=== PATIENT | male | born 1955 | race Caucasian/White ===

== ENCOUNTER 2024-09-07 22:17 | Emergency (ER) | payer OTHER, SELFPAY ==
[2024-09-07 22:19] VITALS: BP 102/67
[2024-09-07 22:40] LABS: % Basophils 0.8 % (0-2); % Eosinophils 4.1 % (0-6); % Immature Granulocytes 0.5 % (0-0.5); % Lymphocytes 25.7 % (20.5-51.1); % Monocytes 11.8 % (1.7-9.3); % Neutrophils 57.1 % (42.2-75.2); Absolute Basophils 0.1 10^3/uL (0-0.2); Absolute Eosinophils 0.3 10^3/uL (0-0.7); Absolute Lymphocytes 1.6 10^3/uL (1.2-3.4); Absolute Monocytes 0.8 10^3/uL (0.1-0.6); Absolute Neutrophils 3.6 10^3/uL (1.4-6.5); Hematocrit 39.1 % (39.0-52.0); Hemoglobin 13.2 g/dL (13.0-18.0); Mean Corp Hgb Conc. 33.8 g/dL (33.0-37.0); Mean Corpuscular Hgb 32.1 pg (27.0-31.0); Mean Corpuscular Volume 95.1 fL (80.0-94.0); Mean Platelet Volume 9.4 fL (7.4-10.4); Nucleated Red Blood Cells % 0 % (-); Platelet Count 181 10^3/uL (130-400); Red Blood Cell Count 4.11 10^6/uL (4.70-6.10); Red Cell Dist. Width 12.8 % (11.5-14.5); White Blood Cell Count 6.4 10^3/uL (4.8-10.8)
[2024-09-07 22:53] LABS: ALT (SGPT) 71 U/L (0-50); AST (SGOT) 49 U/L (17-59); Albumin 4.3 g/dl (3.5-5.0); Alkaline Phosphatase 52 U/L (38-126); Blood Urea Nitrogen 31 mg/dl (9-20); Calcium 9.1 mg/dl (8.4-10.2); Carbon Dioxide 22 mmol/L (22-30); Chloride 105 mmol/L (98-107); Glucose 125 mg/dl (70-99); Potassium 3.8 mmol/L (3.5-5.1); Sodium 141 mmol/L (135-145); Total Bilirubin 0.5 mg/dl (0.2-1.3); eGFR 54.07
[2024-09-08] VITALS (15 sets, daily range): BP systolic 81–158; BP diastolic 46–87; PULSE 81–94; BMI 32.5
[2024-09-08 01:40] LABS: Troponin I < 0.012 ng/ml
--- NOTE | 2024-09-08 02:19 | ED.GENMED ---
History of Present Illness
<BANG Jiménez - Last Filed: 09/08/24 04:24>
General
Chief Complaint: Fainting/Passed Out
Source: patient
Time Seen by Provider: 09/08/24 02:16
Nursing documentation reviewed up to this point in time: agreed with
History of Present Illness
History of Present Illness:
Pt is a 69 yo M who presents to the ED after fainting and falling which resulted in a laceration on his right chin. Pt was drinking alcohol tonight, he states that he was sitting down and then when he stood up to walk he fainted, lost consciousness,
and fell. Pt states that he does not know what he hit his chin on. Pt reports that previously he has had episodes of fainting after he goes from a sitting to standing position. He reports that his and son helped him to stand up, and that he was
able to walk to the car to come to the ED. Pt denies N/V, weakness, changes in vision or hearing, chest pain, shortness of breath, headache.
Past History
<BANG Jiménez - Last Filed: 09/08/24 04:24>
Past History
ED Past Medical History: Psychiatric (Anxiety) and Other (Kidney stone)
ED Past Surgical History: Orthopedic (Left knee replacement) and Other (Hernia repair)
Social History
Tobacco: Non-smoker
Alcohol: Occasional
Personal:
Living: with family
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
Family History
Family History: Other (Noncontributory)
Review of Systems
<BANG Jiménez - Last Filed: 09/08/24 04:24>
Review of Systems
Allergies reviewed?: Yes
Constitutional: Reports no symptoms
Respiratory: Reports no symptoms
Cardiac: Reports no symptoms
ABD/GI: Reports no symptoms
: Reports no symptoms
Musculoskeletal: Reports no symptoms
Skin: Reports other (laceration on chin)
Neurological: Reports other (syncope)
Phy Exam
<Ursula Rooney [facility] - Last Filed: 09/08/24 04:24>
General Physical Exam
General Presentation: well appearing and no apparent distress
General age: appears stated age
General Skin: warm
General Habitus: normal
General Mental: alert
General Hydration: appears well hydrated
Eye Exam
Eye Exam: PERRL and conjunctiva normal
Cardiovascular Exam
Cardiovascular Exam: regular rate/rhythm
Pulmonary Exam
Pulmonary Exam: lungs clear
Neurological Exam
Neurological Exam: alert, oriented x3 and speech normal
Skin Exam
Skin Exam: other (1.5cm laceration on right chin)
Course
<Ursula Rooney [facility] - Last Filed: 09/08/24 04:24>
Orders/Labs/Results
Orders:
Orders
09/07/24 22:24
EKG [Electrocardiogram (*1)] Urgent
Reason for Study: Syncope
EKG- Treatment ONCE
09/07/24 22:29
Alcohol Urgent
Complete Blood Count/With Diff Urgent
Comprehensive Metabolic Panel Urgent
09/08/24 01:07
CT Head W/o Iv Contrast Urgent
Comment:
Reason For Exam: fell, no LOC but is dizzy and bp 82/46
09/08/24 01:09
Troponin I Urgent
09/08/24 02:15
Add On- LAB Urgent
Tests Added?: alcohol level
09/08/24 02:23
0.9% Sodium Chloride 1000 ml [Nss] 1,000 ml IV BOLUS
09/08/24 03:15
0.9% Sodium Chloride 1000 ml [Nss] 1,000 ml IV BOLUS
Tetanus/Diphth/Acelpertussis [Adacel] 0.5 ml IM .ONCE ONE
09/08/24 05:28
Orthostatic VS- Treatment ONCE
Abnormal Lab Results
09/07/24
22:29
RBC 4.11 L 10^6/uL
(4.70-6.10)
MCV 95.1 H fL
(80.0-94.0)
MCH 32.1 H pg
(27.0-31.0)
Absolute Monos (auto) 0.8 H 10^3/uL
(0.1-0.6)
Monocytes % 11.8 H %
(1.7-9.3)
BUN 31 H mg/dl
(9-20)
Creatinine 1.4 H mg/dL
(0.7-1.3)
Glucose 125 H mg/dl
(70-99)
ALT 71 H U/L
(0-50)
09/07/24 22:29
09/07/24 22:29
Vital Signs
Initial and Last Documented VS:
Initial Vital Signs
Temp Pulse Resp BP Pulse Ox
97.5 F 71 16 102/67 96
09/07/24 22:19 09/07/24 22:19 09/07/24 22:19 09/07/24 22:19 09/07/24 22:19
Last Documented Vital Signs
Temp Pulse Resp BP Pulse Ox
97.5 F 73 16 103/68 94
09/07/24 22:19 09/08/24 05:00 09/08/24 02:00 09/08/24 05:00 09/08/24 02:45
Yosephlt;Carli Brock DO - Last Filed: 09/08/24 06:13>
Orders/Labs/Results
Orders:
Orders
09/07/24 22:24
EKG [Electrocardiogram (*1)] Urgent
Reason for Study: Syncope
EKG- Treatment ONCE
09/07/24 22:29
Alcohol Urgent
Complete Blood Count/With Diff Urgent
Comprehensive Metabolic Panel Urgent
09/08/24 01:07
CT Head W/o Iv Contrast Urgent
Comment:
Reason For Exam: fell, no LOC but is dizzy and bp 82/46
09/08/24 01:09
Troponin I Urgent
09/08/24 02:15
Add On- LAB Urgent
Tests Added?: alcohol level
09/08/24 02:23
0.9% Sodium Chloride 1000 ml [Nss] 1,000 ml IV BOLUS
09/08/24 03:15
0.9% Sodium Chloride 1000 ml [Nss] 1,000 ml IV BOLUS
Tetanus/Diphth/Acelpertussis [Adacel] 0.5 ml IM .ONCE ONE
09/08/24 05:28
Orthostatic VS- Treatment ONCE
Abnormal Lab Results
09/07/24
22:29
RBC 4.11 L 10^6/uL
(4.70-6.10)
MCV 95.1 H fL
(80.0-94.0)
MCH 32.1 H pg
(27.0-31.0)
Absolute Monos (auto) 0.8 H 10^3/uL
(0.1-0.6)
Monocytes % 11.8 H %
(1.7-9.3)
BUN 31 H mg/dl
(9-20)
Creatinine 1.4 H mg/dL
(0.7-1.3)
Glucose 125 H mg/dl
(70-99)
ALT 71 H U/L
(0-50)
09/07/24 22:29
09/07/24 22:29
Vital Signs
Initial and Last Documented VS:
Initial Vital Signs
Temp Pulse Resp BP Pulse Ox
97.5 F 71 16 102/67 96
09/07/24 22:19 09/07/24 22:19 09/07/24 22:19 09/07/24 22:19 09/07/24 22:19
Last Documented Vital Signs
Temp Pulse Resp BP Pulse Ox
97.5 F 73 16 103/68 94
09/07/24 22:19 09/08/24 05:00 09/08/24 02:00 09/08/24 05:00 09/08/24 02:45
Procedures
<BANG Jiménez - Last Filed: 09/08/24 04:24>
Laceration Closure
Right Middle Chin:
Status of Wound: clean
Size of Wound in cm: 2.5
Description of Wound Edges: sharp
Preparation: cleaned with saline
Revision/Debridement: routine- no revision and irrigate-direct pressure
Wound exploration: explored to base- no FB
Type of Closure: Dermabond-skin glue
<BANG Jiménez - Last Filed: 09/08/24 04:24>
MDM/Problems Addressed
Differential Diagnosis Includes:
Syncope, hypotension
<BANG Jiménez - Last Filed: 09/08/24 04:24>
*Critical Care Note
Total Time (30-74mins, 75-104mins- exclusive of procedures): Not Applicable
<Carli Brock DO - Last Filed: 09/08/24 06:13>
*Radiology
Radiology exam reviewed: radiology read reviewed
*Pulse Oximetry
Patient hypoxic: no
*EKG
Interpreted by ED Provider?: Yes
Interpretation: normal
Comparison EKG: no changes
Rate: normal
Rhythm: sinus
[place]: normal axis
Interval: normal interval
QRS Pattern: normal QRS
Ischemia: no ischemia
*Housekeeping Coordinator Interpretation
Rate: normal
Interpretation: normal
Rhythm: sinus
ED Attending Note
<BANG Jiménez - Last Filed: 09/08/24 04:24>
-
Portions of this chart may have been created with voice recognition software.� Occasional wrong word or��sound alike� substitutions may have occurred due to the inherent limitations of voice recognition software.
<Carli Brock DO - Last Filed: 09/08/24 06:13>
ED Attending Note
Patient seen and examined by attending physician: Yes
I performed the substantive portion of visit, reviewed & personally made and approve the management plan that is documented in note by myself or TRACEY.: Yes
ED Attending Note:
This is a 69-year-old gentleman who has history of hypertension, kidney stones, anxiety, history of abdominal aortic aneurysm repair 4 years ago. He admits to consuming 2 alcoholic cocktails tonight and after watching a basketball game he got up
from his couch, immediately became lightheaded and then proceeded to pass out, striking his chin he believes on the carpeted floor. He does have remote history of similar episodes of passing out. He denies headache, denies neck nor back pain, no
chest pain, no abdominal pain. No dizziness nor lightheadedness.
He arrives via private automobile.
He denies daily alcohol consumption but generally consumes alcohol at least 5 times per week. He denies drug use.
He is unsure as to his last tetanus booster but believes this is been greater than 10 years ago.
TRAUMA EXAM:
VITAL SIGNS: Vital signs reviewed, cooperative. Mild to moderate hypotension noted initially. Has improved with IV fluids. 69-year-old gentleman is bright and alert, pleasant, quite jovial and appears in no acute distress.
DISTRESS: No active disease
EYES: Pupils reactive, no orbital trauma
NOSE: No deformity or epistaxis
FACE AND SCALP: No scalp trauma, external canals no blood. There is a 2.5 cm oblique laceration right chin region. No active bleeding. This laceration is superficial subcutaneous in depth. There is no soft tissue swelling nor focal tenderness.
Full mandible range of motion without difficulty nor pain. There is a minute avulsion of right upper central incisor. No focal dental pain nor loosening of teeth. There is no mucosal lacerations nor tongue laceration.
NECK: Supple nontender, full range of motion without difficulty or pain.
BACK: Back nontender, pelvis stable to compression
RESPIRATORY: No distress, breath sounds normal, no tender chest wall
CARDIAC: No murmur, pulses equal and strong
ABDOMEN: Soft nontender bowel sounds normal. No palpable masses.
SKIN: Warm and dry, normal color. Good turgor.
EXTREMITIES: Nontender, full range of motion without difficulty nor pain.
NEUROLOGICAL: Alert, oriented, no motor deficits
PSYCH: Mood affect normal
Patient presents after syncopal event, right chin laceration. Admits to consuming 2 alcoholic drinks tonight however her alcohol level is elevated at 206.
Noted to be hypotensive upon arrival which has improved with IV fluids. No tachycardia and continues to deny abdominal pain nor back pain.
Labs note elevated creatinine of 1.4, he has had similar elevations noted previously, 2018. Along with more normal levels of 1.1. I suspect an element of dehydration along with acute alcohol intoxication.
At this point nothing to suggest abdominal aortic aneurysm rupture/leakage. CBC is unremarkable.
Will update Tdap.
Will continue IV fluid resuscitation.
Will plan for Dermabond wound glue repair of right chin laceration.
CT of the head is unremarkable.
EKG shows normal sinus rhythm at 64, normal axis, normal intervals. Unchanged from previous September 2004. 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
05:45
Dermabond wound glue repair by PA student.
Patient remains bright and alert. Has received 2 L normal saline solution, blood pressure has now normalized. Systolic 120s to 130s.
Orthostatic vital signs are negative.
No further dizziness nor lightheadedness.
Will discharge to home with recommendations he hold off on alcohol consumption, stay well-hydrated on a daily basis.
Prompt follow-up with PCP for recheck.
Discharge Plan
Departure
Patient Disposition: Home (Routine Discharge)
Date of Disposition: 09/08/24
Time of Disposition: 06:08
Patient with high blood pressure during this ER visit?: No
Condition: Good
Discharge Problem:
Syncope, Chin laceration, Alcohol intoxication, Orthostatic hypotension
Instructions: Orthostatic hypotension, Syncope (Fainting) (DC), Tdap vaccine, Laceration Repair With Glue ED
Prescriptions:
No Action
hydrocodone-acetaminophen 1 EACH tablet
1 ea PO QIDPRN PRN (Reason: pain) Qty: 12 0RF
tamsulosin 0.4 MG capsule
0.4 mg PO DAILY Qty: 30 1RF
amlodipine [Norvasc] 5 MG tablet
5 mg PO DAILY Qty: 30 0RF
Referrals:
UNKNOWN - PT NOT,INTERVIEWE [Family Provider] -
Activity Restrictions/Additional Instructions:
Stay well-hydrated on a daily basis.
Avoid any further alcoholic beverages at least over the next several weeks.
Keep wound glue clean and dry.
Follow-up with your family doctor this week for recheck.
Interventions
Interventions:
*Risk Screen - Suicide Last Done: 09/07/24 22:19
*General Assessment Last Done: 09/07/24 22:19
*Neglect/Abuse Screening Last Done: 09/07/24 22:19
ED- Fall Risk Assessment Last Done: 09/08/24 00:59
*ED COVID-19 Vaccine History Last Done: 09/08/24 00:59
ED- Cardiac Assessment Last Done: 09/08/24 00:59
ED- Neurological Assessment Last Done: 09/08/24 00:59
Discharge Date and Time
Print Language: TUVALU[place]
[2024-09-08] MEDS: NSS 1000 IV ×2 (02:24→03:24)
[2024-09-08 02:54] LABS: Alcohol 206 mg/dl
[2024-09-08] MEDS: ADACEL 0.5 ML IM (03:28)
== END 2024-09-08 06:50 | disposition home or self-care (01) ==
LOC: EMR 22:17
PROVIDERS: Emergency Medicine; EMERGENCY PHYSICIAN Emergency Medicine
DX: R55 Syncope and collapse (principal); S01.81XA Laceration without foreign body of other part of head, initial encounter; F10.129 Alcohol abuse with intoxication, unspecified; I95.1 Orthostatic hypotension; W19.XXXA Unspecified fall, initial encounter; Z23 Encounter for immunization; F41.9 Anxiety disorder, unspecified; I10 Essential (primary) hypertension; Z86.79 Personal history of other diseases of the circulatory system; Z87.442 Personal history of urinary calculi; Z96.652 Presence of left artificial knee joint
CPT/HCPCS: 99284; 12011; 90471; 96360; 70450; 80053; 82077; 84484; 85025; 90715; 93005